=== PATIENT | male | born 1980 | race Caucasian/White ===

== ENCOUNTER 2018-07-27 05:06 | Inpatient (IN) | payer OTHER ==
--- NOTE | 2018-07-26 18:15 | Pre-op HX & Phy Repo 2 SIG ---
DATE OF ADMISSION: 07/27/2018 SCHEDULED FOR SURGERY: July 27, 2018. HISTORY OF PRESENT ILLNESS: This is a 38-year-old patient, preoperative male to female sexual reassignment surgery with a history of gender dysphoria in overall good health. She takes no medications and has stopped hormones and aspirin 81 mg preoperatively. ALLERGIES: no allergies to medications PAST OPERATIONS: Shoulder surgery for loose tendons in 2006 and nasal surgery, tonsillectomy, and wisdom teeth extraction. REVIEW OF SYSTEMS: She has no genitourinary or gastrointestinal symptoms, and no past history of hemorrhoids, mxyclls-dv-krx prolapse, fissure, or any other anorectal condition. PHYSICAL EXAMINATION: GENERAL: The patient is 6 foot 5 inches, 225 pounds. ABDOMEN: Soft. EXTREMITIES: Femoral pulses are 3+. There is no inguinal lymphadenopathy. RECTAL: Perianal skin is normal and there is no prolapse with straining. IMPRESSION: Gender dysphoria. PLAN: Sexual reassignment surgery. DISCUSSION: I have had a full discussion with the patient regarding my role in the surgery to be performed by primary surgeon Dr. Aydin Lewis. She understands that I will create the space for the vaginal canal and vagina. I had a full discussion regarding the nature of the procedure, indications, alternatives, options, and risks including bleeding, infection, change in bowel habits, injury to urinary tract or rectum that could require repair or additional subsequent procedures, delayed onset of rectovaginal fistula that could require additional procedures, etc. I also explained to her that rigid sigmoidoscopy is part of the procedure and evaluation. All questions have been answered. The patient understands and agrees to proceed. Trevor Castro M.D. DR: Haylie JOB#: [id number] CC: GEORGINA
[2018-07-27] VITALS (13 sets, daily range): BP systolic 128–163; BP diastolic 67–85
[~2018-07-27] VITALS: Ht 195.6 cm; Wt 106.6 kg
[~2018-07-27 05:06] MED LIST: ASPIR 8181 MG ORAL; ESTRADIOL2 M1 PO; SPIRONOLACTONE100 MG ORAL
[2018-07-27] MEDS ORDERED: Succinylcholine 20mg/ml 10ml vial ONE (07:00)
[2018-07-27] MEDS ORDERED: Zemuron 50mg/5ml Inj IV ONE ×3 (07:00→14:04)
[2018-07-27] MEDS ORDERED: Bupivacaine w/Epi 0.25% 30ml Vial INJ ONE (07:00)
[2018-07-27] MEDS ORDERED: NeoSporin Gu Irrig 1ml Amp IRRIG ONE (07:00)
[2018-07-27] MEDS ORDERED: Bacitracin 50000 Units Vial ONE (07:00)
[2018-07-27] MEDS ORDERED: Lidocaine 1% 10mg/ml/Epi 0.005mg/ml 30ml vial INJ ONE (07:00)
[2018-07-27] MEDS ORDERED: Midazolam 2mg/2ml Inj ONE (07:04)
[2018-07-27] MEDS ORDERED: fentaNYL 100 mcg/2 mL IV ONE (07:04)
[2018-07-27] MEDS ORDERED: Lidocaine 1% MPF 10mg/ml 5ml ONE (07:08)
[2018-07-27] MEDS ORDERED: Propofol 200mg/20ml IV ONE (07:08)
[2018-07-27] MEDS ORDERED: Sodium Chloride 10ml vial INJ ONE ×2 (07:09→10:37)
[2018-07-27] MEDS ORDERED: TransDerm Scop 1mg/72HR Patch TDERMAL ONE (07:21)
[2018-07-27] MEDS ORDERED: LR 1000ml ONE (07:30)
[2018-07-27] MEDS ORDERED: Sterile Water Irrig 1000ml IRRIG ONE (07:30)
[2018-07-27] MEDS ORDERED: NS Irrig 1000ml ONE (07:30)
--- NOTE | 2018-07-27 07:57 | Pre-Procedure Note/Attestation ---
Pre-Procedure Note/Attestation Complete Prior to Procedure Procedure Narrative: Male to female sexual reassignment Indications for Procedure Pre-Operative Diagnosis: Gender dysphoria Attestation I attest that I discussed the nature of the procedure; its benefits; risks and complications; and alternatives (and the risks and benefits of such alternatives ), prior to the procedure, with the patient (or the patient's legal pharmacy services representative). I attest that, if there was a reasonable possibility of needing a blood transfusion, the patient (or the patient's legal pharmacy services representative) was given the [facility] standardized written summary, pursuant to the Abel Farshad Blood Safety Act ([place] Health and Safety Code # 1645, as amended). I attest that I re-evaluated the patient just prior to the surgery and that there has been no change in the patient's H&P, except as documented below: Aydin Lewis MD Jul 27, 2018 07:57
--- NOTE | 2018-07-27 08:37 | Anethesia Preoperative Eval ---
Anesthesia Pre-op PMH/ROS General Date of Evaluation: Jul 27, 2018 Time of Evaluation: 07:10 Anesthesiologist: Andrew ASA Score: ASA 2 Mallampati Score Class I : Soft palate, uvula, fauces, pillars visible Class II: Soft palate, uvula, fauces visible Class III: Soft palate, base of uvula visible Class IV: Only hard plate visible Mallampati Classification: Class II Surgeon: Debbie Diagnosis: Gender dysphoria Surgical Procedure: Sexual reassingment Anesthesia History: none Social History: smoking - h/o Allergies: Coded Allergies: No Known Allergies (Unverified , 07/26/18) Patient NPO?: Yes NPO Date: Jul 26, 2018 NPO Time: 2358 Past Medical History Cardiovascular: Denies: HTN, CAD, [place], valve dz, arrhythmia, other Pulmonary: Denies: asthma, COPD, ALEX, other Gastrointestinal/Genitourinary: Reports: GERD - mild; Denies: CRI, ESRD, other Neurologic/Psychiatric: Reports: depression/anxiety; Denies: dementia, CVA, TIA, other Endocrine: Denies: DM, hypothyroidism, steroids, other HEENT: Denies: cataract (L), cataract (R), glaucoma, [place] (L), [place] (R), other Hematology/Immune: Denies: anemia, DVT, bleeding disorder, other Musculoskeletal/Integumentary: Denies: OA, RA, DJD, DDD, edema, other PMH Narrative: as above PSxH Narrative: Shoulder Sx T&A, Septoplasty, dental Sx Anesthesia Pre-op Phys. Exam Physician Exam Last Vital Signs Date Time Temp Pulse Resp B/P (MAP) Pulse Ox O2 Delivery O2 Flow Rate FiO2 07/27/18 06:10 97.6 83 20 141/78 (99) 96 07/27/18 05:53 Room Air Constitutional: NAD Neurologic: CN 2-12 intact Cardiovascular: RRR, no M/R/G Respiratory: CTA Gastrointestinal: S/NT/ND Airway Exam Mallampati Score: Class II MO: full Neck: flexible ROM: full Teeth: intact Dentures: no upper, no lower Anesthesia Pre-op A/P Labs see chart Studies Pre-op Studies: EKG - NSR Risk Assessment & Plan Assessment: ASA 2 Plan: GA with ETT PONV prevention Status Change Before Surgery: No Pre-Antibiotics Drug: Ancef 2gr. Gentamycin 80mg Given Within 1 Hr of Incision: Yes Time Given: 08:16 Randall Morales MD Jul 27, 2018 08:37
[2018-07-27] MEDS ORDERED: TransDerm Scop 1mg/72HR Patch TDERMAL SCH (08:45)
[2018-07-27] MEDS ORDERED: Acetaminophen (Non formulary) 100 ML IV ONE (08:45)
[2018-07-27] MEDS ORDERED: Morphine Sulfate 10mg/ml Inj ONE (10:35)
[2018-07-27] MEDS ORDERED: Neostigmine 1mg/ml 10ml Inj ONE (10:37)
[2018-07-27] MEDS ORDERED: Glycopyrrolate 0.2mg/ml 1ml Vial ONE (10:37)
[2018-07-27] MEDS ORDERED: Phenylephrine 10mg/ml Vial ONE (10:48)
[2018-07-27] MEDS ORDERED: LR 1000ml 1,000 ML IVLG SCH (12:23)
[2018-07-27] MEDS ORDERED: Rate Change PCA 1 Each MISC PRN (12:30)
[2018-07-27] MEDS ORDERED: Naloxone 0.4mg/ml Inj IVP PRN (12:30)
[2018-07-27] MEDS ORDERED: fentaNYL 100 mcg/2 mL IV PRN (12:30)
[2018-07-27] MEDS ORDERED: DiphenhydrAMINE 50mg/ml Inj IVP PRN (12:30)
[2018-07-27] MEDS ORDERED: Midazolam 2mg/2ml Inj IVP PRN (12:30)
[2018-07-27] MEDS ORDERED: Meperidine 50mg/ml Inj(FOR RIGORS ONLY) IV PRN (12:30)
[2018-07-27] MEDS ORDERED: Metoclopramide 10mg/2ml Inj IVP PRN (12:30)
[2018-07-27] MEDS ORDERED: PCA Education Pamphlet MISC ONE (12:30)
[2018-07-27] MEDS ORDERED: LORazepam 1mg tab ORAL PRN (12:30)
[2018-07-27] MEDS ORDERED: Ketorolac 30mg Inj IV PRN (12:30)
[2018-07-27] MEDS ORDERED: Ketorolac 30mg Inj ONE (13:46)
[2018-07-27] MEDS ORDERED: Bacitracin Oint 15gm Tube TOPIC ONE (15:19)
--- NOTE | 2018-07-27 15:35 | NUR ---
CASE MANAGEMENT:REVIEW 07/27/18 SI: GENDER DYSPHORIA 97.6 83 20 141/78 96% ON RA IS: TO SURGERY FOR: SEXUAL REASSIGNMENT~ MALE TO FEMALE FRUIT AND VEGETABLE INSPECTOR DILAUDID : TO MED/SURG 3EAST
--- NOTE | 2018-07-27 15:58 | Operative Note - PDOC ---
Operative Note Operative Note Pre-op Diagnosis: Gender dysphoria Procedure: Male to female gender reassignment Post-op Diagnosis: same as pre-op Surgeon: Debbie Anesthesia: general Complications: none Condition: stable Estimated Blood Loss: volume - 400 Drains: SARWAT Implant(s) used?: No Aydin Lewis MD Jul 27, 2018 15:58
--- NOTE | 2018-07-27 16:02 | Immediate Post-Op Evaluation ---
Immediate Post-Op Evalulation Immediate Post-Op Evalulation Procedure: Sexual reassingment male to female Date of Evaluation: Jul 27, 2018 Time of Evaluation: 16:01 IV Fluids: 2200 Blood Products: Albumin 250 Estimated Blood Loss: 450 Urinary Output: 500 Blood Pressure Systolic: 128 Blood Pressure Diastolic: 76 Pulse Rate: 84 Respiratory Rate: 22 O2 Sat by Pulse Oximetry: 98 Temperature (Fahrenheit): 97.9 Pain Score (1-10): 2 Nausea: No Vomiting: No Complications none Patient Status: reacts, patent, extubated Hydration Status: adequate Randall Morlaes MD Jul 27, 2018 16:02
--- NOTE | 2018-07-27 16:15 | Operative Note - Dictated ---
DATE OF OPERATION: 07/27/2018 SURGEON: Trevor Castro M.D. ANESTHESIOLOGIST: Randall Morales M.D. TYPE OF ANESTHESIA: General. PREOPERATIVE DIAGNOSIS: Gender dysphoria. POSTOPERATIVE DIAGNOSIS: Gender dysphoria. OPERATION PERFORMED: Creation of the space for the vaginal canal. PROCEDURE: I entered the operating room after initial steps had been performed by the primary surgeon, Dr. Aydin Lewis. I used cautery and incised the central perineal tendon. Using cautery for hemostasis and blunt dissection, I created a space between the urethra and bladder superiorly and the rectum posteriorly. I used a rigid sigmoidoscope in the rectum to facilitate the dissection. The levators were incised on both sides to create a 2-1/2 fingerbreadth width and the depth of the canal could only be reached to approximately 10 to 11 cm. Then, the field was flooded with saline and insufflation with the proctoscope performed as well as visual inspection. There was no sign of extravasation or injury to the rectum. The insufflated air was suctioned free and the proctoscope removed. A Betadine soaked vaginal pack was placed into the depths of the dissected field after ascertaining that hemostasis was secure. The procedure was then continued by Dr. Lewis. Trevor Castro M.D. DR: Haylie JOB#: [id number] CC: GEORGINA
[2018-07-27] MEDS: PCA HYDROmorphone 1mg/ml 30 ML IV PRN (16:33)
[2018-07-27 16:39] LABS: HEMOGLOBIN 12.1 G/DL (12.0-16.0); MEAN CORPUSCULAR VOLUME 89 FL (80-99); PLATELET COUNT 153 K/UL (150-450); RED BLOOD COUNT 3.92 M/UL (4.20-5.40); RED CELL DISTRIBUTION WIDTH 11.6 % (11.6-14.8); WHITE BLOOD COUNT 17.4 K/UL (4.8-10.8)
[2018-07-27 16:52] LABS: BASOPHILS % (AUTO) 0.2 % (0.0-2.0); MONOCYTES % (AUTO) 4.4 % (1.0-10.0); NEUTROPHILS % (AUTO) 89.3 % (45.0-75.0)
--- NOTE | 2018-07-27 17:15 | NUR ---
NURSE NOTES: Patient arrived on unit at 1700 via bed. Report received from Laurence RN. Patient belongings checked at bedside and verified, cardoso counted by myself and Laurence RN and recorded on belongings list in presence of patient. Patient is asleep but arousable to voice, alert and oriented, no s/s acute distress noted, on 2L NC. Patient arrived with TITLE CURATOR, settings checked and verified against order. Patient educated on TITLE CURATOR use. Patient reporting some discomfort in left leg and aravind area, readjusted for comfort. SCD's in place. Dressing assessed clean and dry, with some blood stains noted on aravind pad, ice on perineal area, SARWAT drains both compressed. Engle patent and draining, noted order not to remove. Patient reminded of strict bed rest order. IV to KVO fluids intact and asymptomatic. Side rails upx2, bed low and locked, call light in reach. Will continue to monitor.
[2018-07-27] MEDS: PCA shift volume MISC SCH (19:00)
--- NOTE | 2018-07-27 20:15 | NUR ---
NURSE NOTES: Received report from outgoing RN Amy. Pt A&O x4 laying supine in bed. Vital signs stable. IV right hand 18g dry & intact. Surgical site dry & intact w/ ice packs. Call light in reach, bed in lowest position, side rails up x2. Will continue to monitor.
[2018-07-27] MEDS: D5 1/2NS w/KCl 20mEq 1,000 ML IV SCH (20:16)
--- NOTE | 2018-07-27 20:30 | NUR ---
HAND-OFF: Report given to Chan LUX.
--- NOTE | 2018-07-27 21:15 | Operative Note - Dictated ---
DATE OF OPERATION: 07/27/2018 PREOPERATIVE DIAGNOSIS: Enge-go-hyynwt gender dysphoria. POSTOPERATIVE DIAGNOSIS: Sbcq-sn-npuoum gender dysphoria. PROCEDURE: Qwkt-al-ewniok sexual reassignment using penile inversion technique with vaginoplasty, augmented with full-thickness scrotal skin graft. SURGEON: Aydin Lewis M.D. ANESTHESIA: General. INDICATIONS: The patient is a 38-year-old genetic male, who has fulfilled the requirements for sexual reassignment. The patient has had previous electrolysis and has fulfilled the requirements for surgery. OPERATION: The patient was given general anesthesia. She was placed on lithotomy position, prepped and draped in usual manner. An incisional scrotal skin was taken from the penoscrotal junction to the perineum leaving some lateral scrotal skin. The scrotal skin was excised from the rest of the scrotum and set aside to be used as a scrotal full-thickness skin graft. Blunt and sharp dissection was then done to isolate each testicle inside the tunica vaginalis up to the external ring. The spermatic cords were clamped, cut, and double ligated with 0 silk sutures. Circumcision incision was made around the distal penis leaving approximately a centimeter of skin to the dorsal glans. The penis was then degloved and the shaft of the penis was then delivered into the wound, made from the scrotal skin graft excision. Dissection then proceeded to the kimberly on each side. A #1 Ethibond suture was then taken around the base of each willy and tied. Blunt and sharp dissection was done over the pubic symphysis to the lower abdomen to free up the pubic tissue and lower abdomen. The pubic tissue and lower abdomen was then pulled towards perineum and kept in place with a bolster of #1 Prolene through the skin to the lower rectus and out through the skin again and tied over a [address] Trevor Castro then proceeded to make the vaginal space. He was able to get approximately 10 cm in depth with approximately 2.5 fingerbreadths. The full-thickness skin graft was defatted. The patient had significant amount of penile skin. Over a vaginal dilator, the neovagina was formed with inverted penile skin suture to full-thickness skin graft. The length of the neovagina was made to be approximately 11.5 to 12 cm in length. The penile skin was sutured to the skin graft with 3-0 Vicryl sutures. An incision was made lateral to the urethra on each side from the willy down to the distal tunica just lateral to the urethra. The corporal bodies were then opened just lateral to the urethra bilaterally. The spongy tissue of the penis was then excised off of the inside of the tunica on both sides. The cavernosal vessels were identified and cut, clamped, and suture ligated on each side with two suture ligatures. The remaining distal penile skin to the glans was freed up on each side down to the base of the neoclitoris. Marking was made to make neoclitoris approximately 1 cm in width and 1.5 in length in a pentagonal-type shape. An incision was then made on the glans to separate the neoclitoris from remainder of the glans. Emerson scissors was taken to the tip of the corporal body on each side and cut through the glans to free up the neoclitoris from the remainder of the glans. The neoclitoris was now isolated on top of the tunica vaginalis with the attached neurovascular vessels and nerves. There was excellent bleeding from the medial clitoris, which had to be fulgurated. The attached distal penile skin was sutured to the neoclitoris on each side with a running 5-0 Monocryl suture and ends with 5-0 Monocryl to create a clitoral manzanares. The tunica was then folded on itself over the pubic symphysis and sutured in place to the underlying rectus fascia. The tunica was sutured to itself laterally on each side and the underside of the distal tunica was sutured to itself, so that the medial clitoris did not protrude. The corpora cavernosal muscle was then dissected off of the bulb of the urethra. The urethra and spongiosum was cut in the mid bulbous urethra. A Engle was inserted into the urethra. The spongiosum was sharply excised and thinned out. The space was closed with some interrupted 4-0 Monocryl suture. The urethral meatus was then spatulated at the 6 o'clock position. Using 4-0 Monocryl sutures, the urethra was sutured to the capsule of spongiosum with a running locking suture. Engle was then reinserted. The inverted penile skin was then pulled down overlying the neoclitoris. Inverted Y incision was then made. The neoclitoris was then delivered through the inverted penile skin. It was sutured in place with running 5-0 Monocryl suture. A vertical incision was made over the neourethra. The urethra was then sutured to the inverted penile skin with a running locking 4-0 Monocryl suture. The packing was taken out of the vagina. A PMT compounding scaler was then placed into the medial vagina and the neovagina was then inserted into the vaginal space. It was stabilized in place with a suture at the 6 o'clock position of 3-0 Monocryl. The inverted penile skin was temporarily sutured to itself to prevent the compounding scaler from pushing out. A 90 mL was placed into the compounding scaler. The labia majora with then formed on each side with an inverted V excision of the anterior labia majora bilaterally. Care was taken to make sure there was good symmetry. The skin and the site was excised. The areolar tissue was excised to give normal-looking labia majora. A 2-0 Vicryl suture was taken lateral to the neoclitoris on each side with the suture taken through the skin to the endopelvic fashion out through the skin again to get a labial sulcus. This was also done more inferiorly from the skin down to the willy out through the skin again on each side. A #10 Alvaro-Crum drain was placed in the right labia majora up into the pubic area. A #7 Alvaro-Crum drain was placed through a separate stab incision inferiorly and placed on the left side. The lower half of the introitus was then closed with interrupted 3-0 Vicryl sutures from the inverted penile skin to the perineal skin. The labia majora was closed with interrupted 4-0 Monocryl through the subdermal tissue with a subcuticular suture of 4-0 Monocryl in the skin. Engle was kept in the bladder. In order to keep the vaginal stent from being expelled, bolsters were placed from red rubber tubes through the introitus on each side and tied tight to close the vaginal space. The patient tolerated the procedure well. She left the operating room in good condition. ESTIMATED BLOOD LOSS: Approximately 400 mL. Aydin Lewis M.D. DR: HUNG JOB#: [id number] CC: GEORGINA
[2018-07-27 21:24] LABS: HEMATOCRIT 32.3 % (37.0-47.0); HEMOGLOBIN 11.2 G/DL (12.0-16.0); MEAN CORPUSCULAR VOLUME 89 FL (80-99); PLATELET COUNT 183 K/UL (150-450); RED BLOOD COUNT 3.64 M/UL (4.20-5.40); RED CELL DISTRIBUTION WIDTH 11.6 % (11.6-14.8); WHITE BLOOD COUNT 13.1 K/UL (4.8-10.8)
[2018-07-27 21:27] LABS: BASOPHILS % (AUTO) 0.2 % (0.0-2.0); LYMPHOCYTES % (AUTO) 6.6 % (20.0-45.0); MONOCYTES % (AUTO) 5.8 % (1.0-10.0); NEUTROPHILS % (AUTO) 87.4 % (45.0-75.0)
--- NOTE | 2018-07-27 21:55 | NUR ---
NURSE NOTES: Pt c/o slight cramping in left calf. Slighlty warm to touch, slight redness, no swelling noted. MD notified, order of STAT venous duplex carried out. Called radiology and left message. Awaiting response. Nursing supervisor inspection department made aware.
[2018-07-27] MEDS: ceFAZolin sod 1 GM in D5W 55 ML IV SCH (22:50)
[2018-07-28] VITALS: BP_SYST 131; BP_SYST 153; BP_DIAS 77; BP_DIAS 85
[2018-07-28] MEDS: D5 1/2NS w/KCl 20mEq 1,000 ML IV SCH ×3 (02:43→19:00)
[2018-07-28] MEDS: Gentamicin 80mg/100ml Premix IVPB SCH ×2 (02:43→10:16)
[2018-07-28 04:00] VITALS: BP 146/85
[2018-07-28] MEDS: ceFAZolin sod 1 GM in D5W 55 ML IV SCH ×3 (06:34→21:10)
[2018-07-28] MEDS: PCA shift volume MISC SCH ×2 (07:00→19:00)
[2018-07-28 07:32] LABS: BASOPHILS % (AUTO) 0.3 % (0.0-2.0); EOSINOPHILS % (AUTO) 0.5 % (0.0-3.0); HEMATOCRIT 29.6 % (37.0-47.0); HEMOGLOBIN 10.3 G/DL (12.0-16.0); LYMPHOCYTES % (AUTO) 19.7 % (20.0-45.0); MEAN CORPUSCULAR VOLUME 88 FL (80-99); MONOCYTES % (AUTO) 9.9 % (1.0-10.0); NEUTROPHILS % (AUTO) 69.7 % (45.0-75.0); PLATELET COUNT 183 K/UL (150-450); RED BLOOD COUNT 3.38 M/UL (4.20-5.40); RED CELL DISTRIBUTION WIDTH 11.8 % (11.6-14.8); WHITE BLOOD COUNT 8.6 K/UL (4.8-10.8)
[2018-07-28 08:00] VITALS: BP 144/81
--- NOTE | 2018-07-28 08:09 | NUR ---
HAND-OFF: Report given to Amy LUX. Pt is stable.
--- NOTE | 2018-07-28 08:38 | NUR ---
NURSE NOTES: Pt in bed a/o x 4 in bed. Pt has patent dwayne tubes draining sanguineous fluid. Vaginal area dressing D/C/I with ice over area. Engle catheter patent draining clear yellow urine. Pt C/O left calf tenderness, no SOB, no chest pain. Left leg slightly warmer than right, tender. Order for venous duplex in place STAT. Flu with ultrasound dept, awaiting exam to be performed. Edward to call me back and give ETA. Pt left in room with PAINT FACTORY WORKER at bedside, call light within reach, scd to right leg. Will continue to monitor.
--- NOTE | 2018-07-28 09:07 | General Progress Note ---
Progress Note Progress Note Afebrile. VSS. Wounds fine. Hct about 30. Left calf tender. Will get venogram. Doing fine Aydin Lewis MD Jul 28, 2018 09:06
[2018-07-28] MEDS: DiphenhydrAMINE 50mg/ml Inj IVP PRN ×2 (10:30→17:33)
[2018-07-28] MEDS: Enoxaparin 40mg Inj SUBQ SCH (10:31)
[2018-07-28 12:00] VITALS: BP 136/77
--- NOTE | 2018-07-28 14:15 | NUR ---
NURSE NOTES: Called Dr. Lewis, informed pt c/o sore throat. ordered chloraseptic spray, refer to orders. Also informed per instrument and controls technician, Venous duplex neg for DVT.
--- NOTE | 2018-07-28 14:48 | NUR ---
CASE MANAGEMENT:REVIEW 07/28/18 SI: GENDER DYSPHORIA. POD#1 99.3 101 20 136/77 99% ON RA H/H-10.3/29.6 IS: IV ANCEF Q8HRS IVF@125/HR LOVENOX SQ QD BURR FILER DILAUDID : MED/SURG STATUS
[2018-07-28] MEDS: Chloraseptic Spray 20mL Bottle ORAL PRN ×2 (15:13→18:59)
--- NOTE | 2018-07-28 15:13 | 48 Hour Post Anesthesia Eval ---
Post Anesthesia Evaluation Procedure: Sexual reassingment male to female Date of Evaluation: Jul 28, 2018 Time of Evaluation: 15:12 Blood Pressure Systolic: 134 0: 56 Pulse Rate: 72 Respiratory Rate: 20 Temperature (Fahrenheit): 97.6 O2 Sat by Pulse Oximetry: 98 Airway: patent Nausea: No Vomiting: No Pain Intensity: 3 Hydration Status: adequate Cardiopulmonary Status: stable Mental Status/LOC: patient returned to baseline Follow-up Care/Observations: n/a Post-Anesthesia Complications: none Follow-up care needed: N/A Randall Morales MD Jul 28, 2018 15:13
[2018-07-28 16:00] VITALS: BP 136/75
[2018-07-28 16:19] LABS: BASOPHILS % (AUTO) 0.7 % (0.0-2.0); EOSINOPHILS % (AUTO) 1.1 % (0.0-3.0); HEMATOCRIT 28.4 % (37.0-47.0); HEMOGLOBIN 9.9 G/DL (12.0-16.0); LYMPHOCYTES % (AUTO) 26.7 % (20.0-45.0); MEAN CORPUSCULAR VOLUME 89 FL (80-99); MONOCYTES % (AUTO) 7.8 % (1.0-10.0); NEUTROPHILS % (AUTO) 63.7 % (45.0-75.0); PLATELET COUNT 171 K/UL (150-450); RED CELL DISTRIBUTION WIDTH 11.7 % (11.6-14.8); WHITE BLOOD COUNT 8.3 K/UL (4.8-10.8)
[2018-07-28 20:00] VITALS: BP 121/72
--- NOTE | 2018-07-28 20:18 | NUR ---
HAND-OFF: Report given to MACI Cheng. Pt left in bed in stable condition, a/o x 4. SARWAT drains patent, fluids running as ordered, SENIOR CIVIL ENGINEER pump at bedside, call light within reach, dressing in place, small blood stain, scd's on.
--- NOTE | 2018-07-28 21:34 | NUR ---
NURSE NOTES: Patient in bed, AOx4. VSS, no shortness of breath. IV site patent, no pain at this time. TRAVELING ENGINEER teaching reinforced. Dressing c/d/i SARWAT drains compressed, output serosanguineous. Ice packs in place. Engle catheter draining well. Tolerating PO fluids. Due meds given, needs attended to, bed low, call light within reach.
[2018-07-29] VITALS: BP 126/68
[2018-07-29] MEDS: DiphenhydrAMINE 50mg/ml Inj IVP PRN ×2 (00:10→21:32)
[2018-07-29 04:00] VITALS: BP 128/75
[2018-07-29] MEDS: ceFAZolin sod 1 GM in D5W 55 ML IV SCH ×3 (05:48→22:26)
[2018-07-29] MEDS: PCA HYDROmorphone 1mg/ml 30 ML IV PRN (05:50)
[2018-07-29] MEDS: PCA shift volume MISC SCH ×2 (07:11→19:20)
[2018-07-29 07:36] LABS: BASOPHILS % (AUTO) 0.7 % (0.0-2.0); EOSINOPHILS % (AUTO) 1.9 % (0.0-3.0); HEMATOCRIT 27.3 % (37.0-47.0); HEMOGLOBIN 9.3 G/DL (12.0-16.0); LYMPHOCYTES % (AUTO) 23.4 % (20.0-45.0); MEAN CORPUSCULAR VOLUME 89 FL (80-99); PLATELET COUNT 166 K/UL (150-450); RED BLOOD COUNT 3.05 M/UL (4.20-5.40); RED CELL DISTRIBUTION WIDTH 11.7 % (11.6-14.8); WHITE BLOOD COUNT 8.7 K/UL (4.8-10.8)
[2018-07-29 08:00] VITALS: BP_SYST 133; BP_SYST 143; BP_DIAS 70; BP_DIAS 73
--- NOTE | 2018-07-29 08:03 | NUR ---
NURSE NOTES: AWAKE/ALERT. NO C/O PAIN. JPX2 IN PLACE WITH SEROSANGUINOUS DRAINAGE.PERINEAL DRESSING DRY AND INTACT IN NO ACUTE DISTRESS.
[2018-07-29] MEDS: Enoxaparin 40mg Inj SUBQ SCH (09:00)
[2018-07-29] MEDS ORDERED: Naloxone 0.4mg/ml Inj IVP PRN (09:28)
[2018-07-29] MEDS ORDERED: PCA HYDROmorphone 1mg/ml 30 ML IV PRN (09:30)
[2018-07-29] MEDS ORDERED: Rate Change PCA 1 Each MISC PRN (09:30)
[2018-07-29] MEDS ORDERED: LORazepam 1mg tab ORAL PRN (09:30)
[2018-07-29] MEDS ORDERED: NS 500ML ONE (10:40)
[2018-07-29 12:00] VITALS: BP 134/79
--- NOTE | 2018-07-29 12:00 | NUR ---
NURSE NOTES: TEMP 100. ENCOURAGED PO FLUIDS AND DO DEEP BREATHING AND USE OF INCENIVE SPIROMETER.
[2018-07-29 16:00] VITALS: BP 131/76
--- NOTE | 2018-07-29 18:58 | NUR ---
NURSE NOTES: RESTING QUIETLY IN BED. IN NO APPARENT DISTRESS.
--- NOTE | 2018-07-29 19:28 | NUR ---
HAND-OFF: Report given to Jorge Alberto ESCUDERO RN.
--- NOTE | 2018-07-29 19:30 | NUR ---
NURSE NOTES: Report taken from MACI Martinez. Patient awake and oriented in bed. No signs of distress on room air. Has a slight fever, instructed patient to use IS when awake. States that the pain is increasing slowly, 5/10. RN instructed to use SENIOR CREDIT ANALYST pump with worsening pain. Having sharp left lateral lower leg pain feels like with dorsiflexion and some movements, venous duplex is negative. IV site c/d/i and patent. Surgical sites, c/d/i, moises in place. Shows some bruising around incision areas. No drainage from surgical site or SARWAT ports. SARWAT drains c/d/i and draining sanguineous fluid. Engle intact and patent, draining light yellow urine. Bed in lowest position, call light within reach.
[2018-07-29 20:00] VITALS: BP 136/93
[2018-07-30] VITALS: BP 131/73
[2018-07-30 04:00] VITALS: BP 133/71
[2018-07-30] MEDS: ceFAZolin sod 1 GM in D5W 55 ML IV SCH ×3 (05:53→21:52)
[2018-07-30] MEDS: PCA shift volume MISC SCH ×2 (07:07→19:04)
--- NOTE | 2018-07-30 07:08 | NUR ---
HAND-OFF: Report given to MACI Martinez.
--- NOTE | 2018-07-30 07:25 | NUR ---
NURSE NOTES: AWAKE/ALERT. PAIN SCALE 2/10. JPX2 IN PLACE WITH SEROSANGUINOUS DRAINAGE. IN NO ACUTE DISTRESS.
[2018-07-30 07:32] LABS: BASOPHILS % (AUTO) 0.6 % (0.0-2.0); EOSINOPHILS % (AUTO) 3.9 % (0.0-3.0); HEMATOCRIT 27.8 % (37.0-47.0); HEMOGLOBIN 9.7 G/DL (12.0-16.0); LYMPHOCYTES % (AUTO) 28.4 % (20.0-45.0); MEAN CORPUSCULAR VOLUME 88 FL (80-99); MONOCYTES % (AUTO) 8.4 % (1.0-10.0); NEUTROPHILS % (AUTO) 58.8 % (45.0-75.0); PLATELET COUNT 181 K/UL (150-450); RED BLOOD COUNT 3.16 M/UL (4.20-5.40); RED CELL DISTRIBUTION WIDTH 11.3 % (11.6-14.8); WHITE BLOOD COUNT 7.6 K/UL (4.8-10.8)
[2018-07-30 08:00] VITALS: BP 135/66
--- NOTE | 2018-07-30 08:25 | General Progress Note ---
Progress Note Progress Note Afebrile. VSS. Wounds fine. HCT 27. Doing well. Aydin Lewis MD Jul 30, 2018 08:25
[2018-07-30] MEDS: Enoxaparin 40mg Inj SUBQ SCH (08:45)
[2018-07-30] MEDS ORDERED: NS 500ML ONE (09:36)
[2018-07-30 12:00] VITALS: BP 120/72
[2018-07-30 16:00] VITALS: BP 127/82
--- NOTE | 2018-07-30 16:27 | NUR ---
CASE MANAGEMENT:REVIEW 07/29/2018 SI: GENDER DYSPHORIA. POD#2 T 98.5 HR 83 RR 18 B/P 143/70 SATS 94% ON RA WNL IS: IV ANCEF Q8HRS IVF@125 mL/HR LOVENOX SUBQ QD SERVICE CLEANER DILAUDID : MED/SURG STATUS 07/30/2018 SI: GENDER DYSPHORIA. POD#2 T 99.9 HR 79 RR 18 B/P 131/73 SATS 95% ON RA WNL IS: IV ANCEF Q8HRS IVF@125 mL/HR LOVENOX SUBQ QD SERVICE CLEANER DILAUDID : MED/SURG STATUS PLAN OF CARE: ADVANCE DIET>> FULL LIQUID
--- NOTE | 2018-07-30 18:59 | NUR ---
NURSE NOTES: in no acute distress. condition stable.
--- NOTE | 2018-07-30 19:17 | NUR ---
HAND-OFF: Report given to Jorge Alberto ESCUDERO RN.
[2018-07-30 20:00] VITALS: BP 131/73
[2018-07-30] MEDS: DiphenhydrAMINE 50mg/ml Inj IVP PRN (20:46)
[2018-07-31] VITALS: BP 127/78
[2018-07-31 04:00] VITALS: BP 126/79
[2018-07-31] MEDS: ceFAZolin sod 1 GM in D5W 55 ML IV SCH ×3 (05:25→21:42)
[2018-07-31] MEDS: PCA shift volume MISC SCH ×2 (07:00→19:58)
--- NOTE | 2018-07-31 07:54 | NUR ---
HAND-OFF: Report given to MACI Xiong and MACI Lennon.
[2018-07-31 08:00] VITALS: BP 135/73
--- NOTE | 2018-07-31 08:00 | NUR ---
NURSE NOTES: Received report from Kristopher LUX. pt a/a/o x4 laying in bed with no signs of distress or other issues at this time. WHITE SUGAR PAN TANK OPERATOR in place. Engle in place draining to gravity with clear /yellow urine. total urine output during straw hat washer operator was:1575ml. SARWAT's in place SARWAT#1 R:5ml SARWAT#2 L: 15ml surgical site dry and intact with 4x4, and pad. pt on clear liquid diet, tolerating well. per pt's has been having diarrhea, RN will monitor and get cultures as needed. pt is at bedrest. call light within reach, bed in lowest position. side rales up x2. I will f/u as needed.
[2018-07-31] MEDS: Enoxaparin 40mg Inj SUBQ SCH (08:52)
[2018-07-31] MEDS ORDERED: Naloxone 0.4mg/ml Inj IVP PRN (09:04)
[2018-07-31] MEDS ORDERED: Rate Change PCA 1 Each MISC PRN (09:15)
[2018-07-31] MEDS ORDERED: PCA HYDROmorphone 1mg/ml 30 ML IV PRN (09:30)
[2018-07-31 16:00] VITALS: BP 120/72
[2018-07-31] MEDS ORDERED: NS 500ML ONE (16:47)
--- NOTE | 2018-07-31 18:15 | NUR ---
NURSE NOTES: Patient alert, oriented x4, calm. NAUMKEAG OPERATOR (Diladud) is managing pain well. 0.9 NS TKO IV infusing to RFA without difficulty. Vitals stable. Appetite good. No NV. Engle patent, draining well to gravity = 1600 ml yellow clear urine. SARWAT L= 7.5 ml SARWAT R= 10 ml. bloody output. Sutures to groin and vaginal area intact, without redness, swelling or drainage. Patient wears menstrual pad as needed. Diarrheal stool, sent down to lab for C-Diff testing. Patient remains safe. Will continue to assess.
[2018-07-31] MEDS ORDERED: Albuterol/Ipratropium 3ml neb HHN PRN (19:15)
--- NOTE | 2018-07-31 19:51 | NUR ---
HAND-OFF: Report given to Radha LUX.
[2018-07-31 20:00] VITALS: BP 129/78
--- NOTE | 2018-07-31 20:00 | NUR ---
NURSE NOTES: Pt lying in bed w/bed in lowest position and call light within reach. Pt A&Ox4, VSS, and in no apparent distress at this time. IV site intact w/IVF @ TKO & CONTINUING EDUCATION DIRECTOR Dilaudid 0.4/12/21; surgical wound C/D/I; and F/C patent/draining well. Will continue to monitor. Addendum: 08/01/18 at 0020 by MICHELLE TAPIA RN B/l SARWAT drains intact and to bulb suction.
--- NOTE | 2018-07-31 20:32 | NUR ---
Nurse's NOtes: on initial rounds, patient requested this RN to get her personal belongings in her car parked in visitor's parking area in front of the hospital. permission given by Rehabilitation Services Coordinator Magre Matthews to retrieve belongings from patient's car with a security personnel. Belongings retrieved from patient's Jeep which consists of 1 back pack and 1 duffel bag; brought belongings to patient's room with Nixon of Security and a patient's belongings inventory completed and filed in chart.
[2018-07-31] MEDS: DiphenhydrAMINE 50mg/ml Inj IVP PRN (23:11)
[2018-08-01] VITALS: BP 136/76
[2018-08-01 04:28] VITALS: BP 132/77
[2018-08-01] MEDS: ceFAZolin sod 1 GM in D5W 55 ML IV SCH ×3 (05:59→21:03)
[2018-08-01] MEDS: PCA shift volume MISC SCH ×2 (07:00→19:31)
--- NOTE | 2018-08-01 07:04 | General Progress Note ---
Progress Note Progress Note Afebrile. VSS/ Wounds fine. Aydin Lewis MD Aug 01, 2018 07:04
--- NOTE | 2018-08-01 07:15 | NUR ---
HAND-OFF: Report given to MACI Reyes.
--- NOTE | 2018-08-01 07:30 | NUR ---
NURSE NOTES: Received report from Guillaume LUX. Patient is awake alert and oriented x4, no s/s acute distress noted. Engle draining, bedrest maintained, SARWAT's compressed x2. GARDE MANGER checked and verified against order. SCD's in place. Side rails upx2, bed low and locked, call light in reach. Will continue to monitor.
[2018-08-01 08:00] VITALS: BP 127/71
[2018-08-01] MEDS: Enoxaparin 40mg Inj SUBQ SCH (09:33)
[2018-08-01 12:00] VITALS: BP 100/60
--- NOTE | 2018-08-01 14:55 | NUR ---
*-* INSURANCE ALL CLINICALS AND REVIEWS HAVE BEEN FAXED TO: [facility]: JIN Hagan PH#..NOT PROVIDED F: [phone].......
[2018-08-01 16:00] VITALS: BP 121/68
[2018-08-01] MEDS: DiphenhydrAMINE 50mg/ml Inj IVP PRN (18:08)
--- NOTE | 2018-08-01 19:38 | NUR ---
HAND-OFF: Report given to Guillaume LUX. Patient stable.
--- NOTE | 2018-08-01 19:45 | NUR ---
NURSE NOTES: Pt lying in bed w/bed in lowest position and call light/DIRECTOR OF ASSESSING button within reach. Pt A&Ox4, VSS, and in no apparent distress at this time. IV site intact/asymptomatic; surgical dressing C/D/I; SARWAT drains to bulb suction and F/C patent/draining well. Will continue to monitor.
[2018-08-01 20:00] VITALS: BP 163/69
[2018-08-02] VITALS: BP 156/72
[2018-08-02 04:00] VITALS: BP 129/87
[2018-08-02] MEDS: DiphenhydrAMINE 50mg/ml Inj IVP PRN (04:00)
[2018-08-02] MEDS: ceFAZolin sod 1 GM in D5W 55 ML IV SCH ×2 (06:00→14:00)
[2018-08-02] MEDS: PCA shift volume MISC SCH (07:18)
--- NOTE | 2018-08-02 07:21 | NUR ---
HAND-OFF: Report given to MACI Levin.
--- NOTE | 2018-08-02 07:49 | General Progress Note ---
Progress Note Progress Note Afebrile. VSS. Doing well. Drains out. Wounds fine. Discharge Aydin Lewis MD Aug 02, 2018 07:49
[2018-08-02 08:00] VITALS: BP 132/74
[2018-08-02] MEDS ORDERED: Tubing IV Secondary IV ONE (08:02)
[2018-08-02] MEDS ORDERED: NS 500ML ONE (08:02)
[2018-08-02] MEDS: Enoxaparin 40mg Inj SUBQ SCH (08:42)
[2018-08-02] MEDS ORDERED: oxyCODONE HCL/Acetaminophen 5/325mg ORAL PRN (09:30)
[2018-08-02 12:00] VITALS: BP 135/76
--- NOTE | 2018-08-02 14:49 | NUR ---
NURSE NOTES: Patient discharged to home, accompanied by friend. Patient was ambulated via wheelchair downstairs. Belongings reviewed and confirmed with the patient. Patient was alert and oriented, denied respiratory distress or pain. Patient's medications retrieved from hospital pharmacy and given to the patient at discharge. IV site safely removed.
--- NOTE | 2018-08-03 15:00 | Discharge Summary ---
Discharge Summary Discharge Summary _ DATE OF ADMISSION: 07/27/2018 DATE OF DISCHARGE: 08/02/2018 DISCHARGED BY: Dr. Aydin Lewis CO-SURGEON: Dr. Trevor Castro BRIEF HOSPITAL COURSE: This is a 38-year-old patient, preoperative male to female sexual reassessment surgery, with history of gender dysphoria, and overall good health. She was admitted for sexual reassignment surgery. Surgery was assisted by Dr. Trevor Castro for creation of space for the vaginal canal. Patient tolerated the procedure well. Postoperatively, she was admitted for postop care. Patient was afebrile and labs were stable. She was given pain management. Diet was advanced. Drains were removed. She was eventually discharged home. 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 DISCHARGE MEDICATIONS: Refer to Discharge Medication List. DISCHARGE INSTRUCTIONS: Follow-up in a week. I have been assigned to dictate discharge summary on this account, and I was not involved in the patient's management. Frida Reynoso NP Aug 03, 2018 15:00
== END 2018-08-02 14:15 | disposition home or self-care (01) | DRG 876 ==
LOC: EDSEX 05:06 → SDSOVERFLO 05:06 → 3E 17:40
PROC: 0W4M070 Creation of Vagina in Male Perineum with Autologous Tissue Substitute, Open Approach (ICD-10-PCS; principal; 2018-07-27 07:30)
DX: F64.0 Transsexualism (principal)
CPT/HCPCS: 36415; 85025; 86850; 86900; 86901; 86920; 87081; 87324; 93970; 94003; 94150; J1580; J2250; J2370; J2405; J2710

== ENCOUNTER 2018-08-08 13:35 | Outpatient (CLI) | payer OTHER ==
--- NOTE | 2018-08-09 10:47 | Diagnostic Imaging Report ---
APPROVED REPORT CPT Code: 60840 Present Symptoms Comments: Left leg swelling and pain BILATERAL: Imaging reveals a patent deep venous system bilaterally. There is no evidence of thrombus within the femoral, popliteal or tibial segments. The greater saphenous veins are also within normal limits. Doppler indicates normal spontaneous flow within these segments.
== END 2018-08-08 15:35 | disposition home or self-care (01) ==
LOC: VAS 13:35
DX: M79.89 Other specified soft tissue disorders (principal)
CPT/HCPCS: 93970